=== PATIENT | female | born 1950 | race Hispanic/Latino ===

== ENCOUNTER 2025-04-27 06:48 | Day surgery (SDC) | payer MEDICARE ==
[~2025-04-27] VITALS: Ht 177.8 cm; Wt 76.2 kg
[2025-04-27] VITALS (13 sets, daily range): BP systolic 123–142; BP diastolic 59–67; PULSE 63–89; RESP 15–18; TEMP 97.1–97.7
[~2025-04-27 06:48] MED LIST: 0.9%NACL 1000ML 1,000 ML IV ONE; CALC-910 PO; CETI10CA5 PO; IRON1CAP30 PO; LISI20TA24 PO; SIMV10TA97 PO; VENL-83 PO
== END 2025-04-27 12:50 | disposition home or self-care (01) ==
LOC: ENDO 06:48 → DAH 06:48 → ENDO 12:50
PROVIDERS: ATTEND Internal Medicine Gastroenterology
DX: K86.2 Cyst of pancreas (principal); F32.A Depression, unspecified; E78.5 Hyperlipidemia, unspecified; I10 Essential (primary) hypertension; K57.30 Diverticulosis of large intestine without perforation or abscess without bleeding; R97.8 Other abnormal tumor markers; Z90.710 Acquired absence of both cervix and uterus; Z98.890 Other specified postprocedural states; Z79.899 Other long term (current) drug therapy
CPT/HCPCS: 43242; 36415; 88108; 88305; 82378 ×2; J0690; J7030; J2704; A4215 ×2; A4223; A4222; A4221; A4663; A4606; J3490